=== PATIENT | male | born 1960 | race Caucasian/White ===

== ENCOUNTER → 2017-04-16 | Outpatient (CLI) | payer OTHER | LOC: FCPNEURO 00:50 | PROVIDERS: ATTEND Internal Medicine Sleep Medicine | DX: G47.61 Periodic limb movement disorder (principal) ==

== ENCOUNTER → 2017-09-03 | Outpatient (CLI) | payer OTHER | LOC: FIMAGING 08:46 | PROVIDERS: ATTEND Internal Medicine Hematology & Oncology | DX: R97.20 Elevated prostate specific antigen [PSA] (principal); Z85.46 Personal history of malignant neoplasm of prostate | CPT/HCPCS: 78306; A9503 ==